=== PATIENT | female | born 1950 | race Caucasian/White ===

== ENCOUNTER 2025-08-01 14:17 | Inpatient (IN) | payer MEDICARE, SELFPAY ==
[2025-08-01] VITALS (8 sets, daily range): BP systolic 125–187; BP diastolic 61–91; BMI 43.0; BMI 42.0
[2025-08-01 08:39] LABS: Glucose - Point of Care 80 mg/dl (70-99)
[2025-08-01 09:26] LABS: Hematocrit 38.6 % (37.0-47.0); Hemoglobin 11.9 g/dL (12.0-16.0); Mean Corp Hgb Conc. 30.8 g/dL (33.0-37.0); Mean Corpuscular Volume 90.0 fL (81.0-99.0); Nucleated Red Blood Cells % 0 %; Platelet Count 180 10^3/uL (130-400); Red Cell Dist. Width 14.6 % (11.5-14.5)
--- NOTE | 2025-08-01 09:46 | ED.GENMED ---
History of Present Illness
General
Chief Complaint: Change in Mental Status
Time Seen by Provider: 08/01/25 08:53
History of Present Illness
History of Present Illness:
74-year-old female with history of iron deficiency anemia presenting to the emergency department for change in mental status. Patient arrives a daughter who lives with her. She reports prior to arrival, the patient let out a loud scream. When she
went to assess her, patient was in her doorway, said that she could not move her body, so she lowered her onto a wheelchair. Medics were called and on their arrival patient was noted to be bradycardic and hypoglycemic with a sugar in the 20s. She
was given sugar supplementation and atropine. On arrival patient reports that she has no recollection of preceding events. She does report that she recently started Mounjaro 2 weeks ago, has had limited p.o. intake. She notes that she is feeling
better since interventions by medics. Denies chest pain or difficulty breathing. Denies current weakness or numbness to extremities. Denies any prior cardiac history. Denies any abdominal pain. She has been getting iron infusions for her
anemia. Denies additional acute medical complaints
Phy Exam
Physical Exam
Physical Exam:
General: Well-appearing, no clinical signs of dehydration, nontoxic and in no acute distress
HEENT: protecting airway
Neck: appears supple
CV: Bradycardic, regular rhythm, no evidence of cyanosis
Resp: No accessory muscle use, no increased work of breathing, lungs clear to auscultation bilaterally
Abd: Soft and non-distended, no tenderness to palpation
Extremities: No deformities, no swelling
Neuro: alert, no focal neurologic deficit
: deferred
Rectal: deferred
Psych: Normal affect
Skin: Intact
Course
Orders/Labs/Results
Orders:
Orders
08/01/25 09:19
Complete Blood Count/With Diff Urgent
08/01/25 09:34
Electrocardiogram (*1) Urgent
Reason for Study: Other
Other Reason for Exam: bradycardia
EKG- Treatment ONCE
08/01/25 09:46
Comprehensive Metabolic Panel Urgent
08/01/25 09:47
CT Head W/o Iv Contrast Urgent
Comment:
Reason For Exam: change in mental status
08/01/25 11:53
Dextrose 50%-Water [Dextrose 50% Syringe] 25 grams IV NOW STA
Abnormal Lab Results
08/01/25 08/01/25 08/01/25
09: 09:46 11:38
Hgb 11.9 L g/dL
(12.0-16.0)
MCHC 30.8 L g/dL
(33.0-37.0)
RDW 14.6 H %
(11.5-14.5)
MPV 11.4 H fL
(7.4-10.4)
Absolute Lymphs (auto) 0.8 L 10^3/uL
(1.2-3.4)
Neutrophils % 77.4 H %
(42.2-75.2)
Lymphocytes % 15.3 L %
(20.5-51.1)
BUN 23 H mg/dl
(7-17)
POC Glucose 50 L* mg/dl
(70-99)
08/01/25 09:19
08/01/25 09:46
Vital Signs
Initial and Last Documented VS:
Initial Vital Signs
Pulse Resp BP Pulse Ox
59 18 159/78 97
08/01/25 08:32 08/01/25 08:32 08/01/25 08:32 08/01/25 08:32
Last Documented Vital Signs
Temp Pulse Resp BP Pulse Ox
95 F L 61 19 137/71 95
08/01/25 09:23 08/01/25 12:15 08/01/25 12:15 08/01/25 11:00 08/01/25 12:15
MDM/Problems Addressed
MDM/Problems Addressed:
74-year-old female with history of iron deficiency anemia presenting to the emergency department for episode of altered mental status. Vital signs arrival significant for mild bradycardia.
On exam patient is awake and alert, however preceding hospital visit, was found to be profoundly hypoglycemic and bradycardic, received D10 and atropine. Sugar on arrival has improved as well as heart rate. Suspect hypoglycemia secondary to
patient's Mounjaro, poor p.o. intake. Suspect bradycardia secondary to hypoglycemia. Vital signs on arrival also significant for hypothermia, again likely from profound hypoglycemia. Patient show symptoms without concern for systemic infection or
sepsis. Plan for close cardiac monitoring, laboratory analysis and frequent glucose checking. Given report that patient was unresponsive, will also obtain CT brain imaging. EKG obtained sinus. ED EKG obtained, without any signs of heart block.
Will continue to closely monitor
12:30 -labs relatively unremarkable, however on glucose recheck, sugar did drop to 50, administered D50. Concern of continued hypoglycemia despite patient tolerating food and liquid by mouth. Plan for admission for continued monitoring and
frequent glucose checks
*Pulse Oximetry
SaO2: 97
Oxygen Mode of Delivery: Room air
Patient hypoxic: no
*EKG
Interpreted by ED Provider?: Yes
EKG Intrepretation Date: 08/01/25
EKG Intrepretation Time: 09:50
Interpretation: normal
Comparison EKG: no comparison EKG present
Heart Rate: 55
Rate: bradycardiac
Rhythm: sinus
[place]: normal axis
Interval: normal interval
QRS Pattern: normal QRS
Ischemia: no ischemia
*Critical Care Note
Total Time (30-74mins, 75-104mins- exclusive of procedures): Not Applicable
ED Attending Note
-
Portions of this chart may have been created with voice recognition software.� Occasional wrong word or��sound alike� substitutions may have occurred due to the inherent limitations of voice recognition software.
Discharge Plan
Departure
Referrals:
Abilio Martínez, [Family Provider, Family Practice]
Interventions
Interventions:
*Risk Screen - Suicide Last Done: 08/01/25 08:32
*General Assessment Last Done: 08/01/25 08:32
*Neglect/Abuse Screening Last Done: 08/01/25 09:10
*ED- Fall Risk Assessment Last Done: 08/01/25 09:03
*ED COVID-19 Vaccine History Last Done: 08/01/25 09:03
ED- Neurological Assessment Last Done: 08/01/25 09:03
ED Swallowing Screen Last Done: 08/01/25 09:03
Discharge Date and Time
Print Language: WOLOF
[2025-08-01 10:15] LABS: ALT (SGPT) 15 U/L (0-35); AST (SGOT) 21 U/L (14-36); Albumin 4.1 g/dl (3.5-5.0); Alkaline Phosphatase 46 U/L (38-126); Blood Urea Nitrogen 23 mg/dl (7-17); Calcium 9.5 mg/dl (8.4-10.2); Carbon Dioxide 26 mmol/L (22-30); Chloride 106 mmol/L (98-107); Estimated Creatinine Clearance 61 ml/min; Glucose 70 mg/dl (70-99); Potassium 4.3 mmol/L (3.5-5.1); Sodium 140 mmol/L (135-145); Total Protein 7.8 g/dl (6.3-8.2); eGFR 59.12
[2025-08-01 11:39] LABS: Glucose - Point of Care 50 mg/dl (70-99)
[2025-08-01] MEDS: DEXTROSE 50% SYRINGE 25 GRAMS IV (11:55)
--- NOTE | 2025-08-01 12:43 | HPS.HSE ---
Addendum entered and electronically signed by Shayla Giang MD 08/01/25 15:27:
This is an addendum to H&P with by Jaki Judd on 08/01/2025. �Patient seen and examined independently with CHEMISTS.
74-year-old female past medical history of diabetes, anemia, hypertension, CKD 3, hyperlipidemia, osteoporosis, presenting for change in mental status. �Prior to arrival patient mildly screamed. �Patient was in the doorway and could not move her
body and was lowered onto wheelchair by her daughter. �Medics were called and on arrival she was bradycardic and hypoglycemic blood sugar in the 20s. �She was given glucose and atropine.
She was started on Mounjaro 2 weeks ago for weight loss and has been eating very little. Recent a1c 6.7 this month.�
Brother 3 weeks ago. Zoloft stopped 3 months ago because innfective.�
She has been having issues with recurrent anemia requiring blood transfusions and iron infusions. �She was recommended to follow-up with GI for endoscopy.
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
Vital signs show temperature of 95. �Heart rate 50s. Blood pressure 187/91.�
EKG shows sinus bradycardia with premature supraventricular complexes.
Labs show blood sugar of 80, second blood sugar 50.
CT head shows tiny old lacunar infarct in left internal capsule.
Patient with severe hypoglycemia associated with hypothermia/bradycardia secondary to recently started Mounjaro in the setting of poor p.o. intake and glimepiride use and underlying CKD 3. �D10 drip started. �Mani janet as needed.�
Hold metoprolol for now since bradycardic. PRN Hydralazine for elevated blood pressure.� Resume Valsartan/HCTZ.�
Metformin and glimepride should be stopped permanently if Mounjaro to be continued given recent a1c 6.7.
Original Note:
Family Physician
-
Family Physician: Abilio Martínez
Chief Complaint
-
Hypoglycemia, bradycardia
History of Present Illness
74-year-old female from home where she lives with her daughter who states last night she noticed feeling very hungry she also felt very sweaty but did not let her daughter know. This morning patient let out a loud scream and her daughter found her
in the doorway unable to move from her wheelchair. She lowered her to the floor And called EMS. Upon EMS arrival her blood sugar was noted to be in the 20s along with her heart rate being bradycardic. She was given D10 push and atropine. She
reports starting Mounjaro 2 weeks ago along with her metformin 500 mg daily and glimepiride 4 mg daily however her daughter states that her recent A1c was 6.7 in the last month. Her last dose of Mounjaro was Sunday 3 days ago at 2.5 mg. The
patient has had decreased appetite while on this medication. According to her daughter she only had a small salad yesterday a.m. The patient was unaware of hypoglycemic and hyperglycemic symptoms that I went over with both patient and daughter at
bedside. I made her aware to stop her glimepiride and metformin if she is on Mounjaro. Patient also expressed that her brother 3 weeks ago had history of cardiac disease and pulmonary disease she has been very upset and anxious that she is
going to herself. Her daughter states she used to be on Zoloft which was stopped
She is also currently receiving IV iron transfusions of which last when she had was on Sunday 5 days ago. She has subsequent 2 more infusions this coming Sunday and Sunday. She required blood a few months ago due to anemia. She is due for
follow-up with GI for endoscopy/colonoscopy. She has past medical history of iron deficiency anemia, hypertension, DM 2, GERD, anxiety/depression, CKD3 A, class III obesity
Medical History
Past Medical History
Past Medical History: Reports Other
Additional Past Medical History:
COPD
Former smoker stopped April 2025
DM2
HTN
GERD
iron deficiency anemia
anxiety/depression
CKD3 A,
class III obesity
Past Surgical History: Reports Other
Additional Past Surgical History:
Cholecystectomy
Great toe bone removal
Social History
Tobacco: Former Smoker (56-year 1.5 pack/day smoker stopped April 2025)
Alcohol: None
Drug: None
Personal: Single
Living: With Family (Lives with daughter)
Employment: Retired
Family History
Family History: Other (Brother recently 3 weeks ago history of A-fib, pulmonary disease)
Allergies / Home Medications
Allergies reflects when Allergies were last updated in [employer].
Home Medications with original date entered in [employer]
Allergy/Medication List:
Allergies
Allergy/AdvReac Type Severity Reaction Status Date / Time
Iodinated Contrast Media Allergy Unknown Verified 08/01/25 08:36
shellfish derived Allergy Unknown Verified 08/01/25 08:36
Home Medications
albuterol sulfate 90 mcg/actuation aerosol inhaler 1 puff inhalation Q4HPRN PRN wheezing sob 08/01/25
albuterol sulfate 90 mcg/actuation aerosol inhaler 2 inh inhalation R Q4HPRN PRN wheezing 08/01/25
alendronate 70 mg tablet 70 mg PO DIRECTED 08/01/25
alendronate 70 mg tablet 70 mg PO MO 08/01/25
atorvastatin 40 mg tablet 40 mg PO DAILY 08/01/25
atorvastatin 40 mg tablet 40 mg PO DAILY 08/01/25
budesonide 160 mcg-glycopyr 9 mcg-formot 4.8 mcg/actuation HFA inhaler (Breztri Aerosphere) 2 inh inhalation BID 08/01/25
budesonide 160 mcg-glycopyr 9 mcg-formot 4.8 mcg/actuation HFA inhaler (Breztri Aerosphere) 2 inh inhalation R BID 08/01/25
cholecalciferol (vitamin D3) 25 mcg (1,000 unit) tablet 25 mcg PO DAILY 08/01/25
fenofibrate nanocrystallized 48 mg tablet 48 mg PO DAILY 08/01/25
glimepiride 4 mg tablet 4 mg PO DAILY 08/01/25
metoprolol succinate 50 mg tablet,extended release 24 hr 25 mg PO DAILY 08/01/25
pantoprazole 40 mg tablet,delayed release 40 mg PO DAILY 08/01/25
pantoprazole 40 mg tablet,delayed release 40 mg PO DAILY 08/01/25
tirzepatide 2.5 mg/0.5 mL subcutaneous pen injector (Mounjaro) 2.5 mg SC DIRECTED 08/01/25
tirzepatide 2.5 mg/0.5 mL subcutaneous pen injector (Mounjaro) 2.5 mg SC WE 08/01/25
valsartan 80 mg-hydrochlorothiazide 12.5 mg tablet 1 tab PO DAILY 08/01/25
valsartan 80 mg-hydrochlorothiazide 12.5 mg tablet 80 tab PO DAILY 08/01/25
Review of Systems
-
History Source: Patient and Family (Daughter at bedside)
A 12 point ROS was completed and negative except as noted: Yes
Constitutional: Reports Fever (Hypothermia) and Chills
EENT: Denies Sore Throat or Runny Nose
Respiratory: Denies Cough or Trouble Breathing
Cardiac: Reports Diaphoresis; Denies Chest Pain or Palpitations
Abdomen/GI: Reports Nausea; Denies Abdominal Pain, Vomiting, Diarrhea or Constipated
: Denies Dysuria, Frequency, Flank Pain, Incontinence or Difficulty Voiding
Musculoskeletal: Denies Joint Pain, Joint Swelling or Edema
Skin: Denies Itching or Rash
Neurological: Reports Dizzy; Denies Headache or Weakness
Endocrine: Reports No Symptoms
Hematologic/Lymphatic: Reports No Symptoms
Psych: Reports Anxiety
Physical Exam
Vital Signs
Vital Signs
Temp Pulse Resp BP Pulse Ox
95 F L 61 19 137/71 95
08/01/25 09:23 08/01/25 12:15 08/01/25 12:15 08/01/25 11:00 08/01/25 12:15
Physical Exam
General: Conversant and Morbidly Obese; No Pain, Fever or Chills
HEENT: NormoCephalic, Anicteric, Moist mucous membranes, [place] Conjunctivae and No Ptosis
Respiratory: Clear; No Wheezes, Rales or Rhonchi
Cardiac: S1/S2 and Bradycardia (Sinus bradycardia heart rate 56 bpm on monitor); No Murmur, Rub, Gallop or Peripheral Edema
Breast: Deferred by me
GI: Soft, Non Tender, Normal Bowel Sounds and No Hepatosplenomegaly
Rectal: Deferred by Provider
Genito-urinary: Deferred by me
Musculoskeletal: No Clubbing, No Cyanosis and No Edema
Skin: Warm and Dry; No Rash or Jaundice
Neuro: AO x 3, No Motor Deficits, Nonfocal/grossly intact, Cranial Nerves Intact and No Sensory Deficits; No Slurred Speech, Facial Droop, Tremors or Sedated
Psych: Calm (To slight anxious)
Laboratory Results
-
08/01/25 09:19
08/01/25 09:46
Laboratory Results
Total Bilirubin 0.5 mg/dl (0.2-1.3) 08/01/25 09:46
AST 21 U/L (14-36) 08/01/25 09:46
ALT 15 U/L (0-35) 08/01/25 09:46
Alkaline Phosphatase 46 U/L (38-126) 08/01/25 09:46
Data Reviewed
-
CT Scan: Report Reviewed by me
Lab Data: Labs Reviewed by me
Impression/Plan
-
Impression/plan:
Admit to TELE
#Acute persistent hypoglycemia likely secondary to Mounjaro/DM 2
Blood sugar 20 at home given glucose repeat blood sugar dropped to 50 in ER
Recent Accu-Chek 96 at 13:40 PM
- IV D10 drip
- Accu-Cheks every 2 hours until stable blood sugar> 100 then every 4 hours
- Recommended to patient with daughter present stopping permanently glimepiride and metformin 500 mg daily due to reported recent A1c 6.7 in the past month
- Will check HgbA1c
CT head: Tiny old lacunar infarct in left internal capsule senescent changes
# Acute hypothermia secondary to hypoglycemia
95F > 97.9 with correction of glucose currently 96
#Acute bradycardia in setting of hypoglycemia
- HR 57
Will hold metoprolol 25 mg
- Patient was given atropine by EMS prior to arrival
#HTN
BP 187/91
IV hydralazine now and as needed
- Hold current metoprolol due to current bradycardia
- Resume valsartan 80/HCTZ 12.5 mg daily patient has not been on for the past month due to unable to get from pharmacy
#Anxiety
Was taken off of Zoloft 200 mg daily due to not working and having bad dreams
Patient made aware to follow-up with PCP as she is currently having anxiety and depression after her brother's
#COPD no acute exacerbation
Former smoker stopped April 2025
- Continue Breztri inhaler, patient on Dupixent
#GERD
Continue Protonix 40 mg daily
#History of toe surgery with occasional pain
Patient takes gabapentin 100 mg p.o. as needed
#Osteoporosis
Patient on Fosamax 70 mg on Mondays
Class III obesity�BMI 43
Affects all aspects of care
Continue Mounjaro 2.5 mg weekly on Wednesdays
DVT prophylaxis
Subcu Lovenox
Full code
[2025-08-01 13:34] LABS: Glucose - Point of Care 92 mg/dl (70-99)
[2025-08-01] MEDS: D10W 500 IV (13:40)
[2025-08-01] MEDS: LOPRESSOR 25 MG PO (13:41)
[2025-08-01] MEDS: APRESOLINE 10 MG IV (13:41)
[2025-08-01 15:30] LABS: Glucose - Point of Care 71 mg/dl (70-99)
--- NOTE | 2025-08-01 16:30 | PTCARENOTE ---
Pt received from ED and walked to bed from stretcher. VSS. AAOx3. barback applied- NSR @this time. BG 71. D10W running @40mls/hr. Pt drinking kathi beatriz. pt complains of some nausea at times with repositioning. Call espinoza is within reach.
POC ongoing.
[2025-08-01 17:31] LABS: Glucose - Point of Care 108 mg/dl (70-99)
[2025-08-01] MEDS: SYMBICORT 160/4.5 MCG INHALER 2 PUFF INH (20:33)
[2025-08-01 21:28] LABS: Glucose - Point of Care 108 mg/dl (70-99)
[2025-08-01] MEDS: DESENEX/MITRAZOL/ZEASORB 1 APPLIC TOPICAL (21:57)
[2025-08-01] MEDS: HEPARIN 5000 UNITS SC (21:59)
[2025-08-01] MEDS: MELATONIN 5 MG PO (22:35)
[2025-08-01] MEDS: TYLENOL 650 MG PO (22:39)
[2025-08-02] VITALS (7 sets, daily range): BP systolic 135–172; BP diastolic 62–75; PULSE 66; BMI 41.8
[2025-08-02 01:31] LABS: Glucose - Point of Care 118 mg/dl (70-99)
[2025-08-02] MEDS: D10W IV (02:46)
[2025-08-02] MEDS: D10W 1000 IV (02:48)
[2025-08-02 05:58] LABS: Glucose - Point of Care 134 mg/dl (70-99)
[2025-08-02 06:40] LABS: Glucose - Point of Care 117 mg/dl (70-99)
[2025-08-02 07:54] LABS: Hematocrit 36.7 % (37.0-47.0); Hemoglobin 11.7 g/dL (12.0-16.0); Mean Corp Hgb Conc. 31.9 g/dL (33.0-37.0); Mean Corpuscular Volume 89.1 fL (81.0-99.0); Nucleated Red Blood Cells % 0 %; Platelet Count 216 10^3/uL (130-400); Red Cell Dist. Width 14.9 % (11.5-14.5)
[2025-08-02] MEDS: SYMBICORT 160/4.5 MCG INHALER 2 PUFF INH ×2 (08:11→19:37)
[2025-08-02] MEDS: SPIRIVA RESPIMAT 2.5 MCG 2 PUFF INH (08:11)
[2025-08-02 08:17] LABS: ALT (SGPT) 15 U/L (0-35); AST (SGOT) 18 U/L (14-36); Albumin 3.8 g/dl (3.5-5.0); Alkaline Phosphatase 54 U/L (38-126); Blood Urea Nitrogen 19 mg/dl (7-17); Calcium 9.6 mg/dl (8.4-10.2); Carbon Dioxide 28 mmol/L (22-30); Chloride 104 mmol/L (98-107); Estimated Creatinine Clearance 50 ml/min; Glucose 157 mg/dl (70-99); Potassium 4.4 mmol/L (3.5-5.1); Sodium 137 mmol/L (135-145); Total Protein 7.3 g/dl (6.3-8.2); eGFR 47.50
[2025-08-02] MEDS: PROTONIX 40 MG PO (08:17)
[2025-08-02] MEDS: LIPITOR 40 MG PO (08:17)
[2025-08-02] MEDS: ORETIC 12.5 MG PO (08:17)
[2025-08-02] MEDS: HEPARIN 5000 UNITS SC ×2 (08:18→20:11)
[2025-08-02] MEDS: DIOVAN 80 MG PO (08:18)
[2025-08-02] MEDS: DESENEX/MITRAZOL/ZEASORB 1 APPLIC TOPICAL ×2 (08:19→20:16)
[2025-08-02 10:43] LABS: Glycohemoglobin (HgbA1c) 6.0 % (4.0-5.6)
[2025-08-02 12:01] LABS: Glucose - Point of Care 252 mg/dl (70-99)
--- NOTE | 2025-08-02 12:25 | PTOTSP ---
Patient demonstrates safe and independent mobility, no skilled physical therapy needs at this time.
[2025-08-02] MEDS: NOVOLOG FLEXPEN-LOW RESISTANCE 3 UNITS SC (13:18)
--- NOTE | 2025-08-02 13:19 | W.PN.HOSP.TC ---
Addendum entered and electronically signed by Wily Haque MD 08/02/25 13:24:
CKD stage unknown
- Creatinine 1.2, baseline unknown although family stated of patient having diagnosed with CKD
- Patient followed by court worker on outpatient basis
Original Note:
Today's Communication/Plan
-
Stop D10
Insulin sliding scale for high blood glucose
No glimepiride
Monitor blood glucose
Iron infusion in the morning
Possible discharge tomorrow
Assessment / Plan
Assessment / Plan
1. Acute Hypoglycemia
-Glucose was in 20s at home, required to be given glucose in ER with blood glucose still remain low in 50s
-Started on IV dextrose 10% infusion
-Likely secondary to glimepiride use with decreased oral intake from Mounjaro adding to the problem
-Blood glucose better, stopping D10
-Liberalizing carb intake
-Monitor blood glucose overnight with possible discharge if remains stable on oral intake
2. Iron deficiency anemia
-Patient was planned to have an iron infusion at [facility] tomorrow
-Will provide 1 dose of Ferrlecit tomorrow
3. Bradycardia/hypothermia
-Secondary to hypoglycemia, resolved
4. Hypertensive urgency -resolved
-Patient required to be given IV hydralazine in ER for systolic blood pressure in 180s
-Resume home medication of ROSALINDA/ARB
Generalized anxiety disorder
COPD
Gastroesophageal reflux disease
Obesity
Osteoporosis
DVT prophylaxis Subcu Lovenox
Full code
Total time spent : 54 mins
Anticipated Discharge: Within 24 hours
Subjective/Interval History
-
Date of Service: August 02, 2025
Denies of having any dizziness/diaphoresis
No problems with balance
But glucose has been better
Objective Data
-
Labs:
Laboratory Results
08/02/25
07:06
WBC 6.4
Hgb 11.7 L
Hct 36.7 L
Plt Count 216
Sodium 137
Potassium 4.4
Chloride 104
Carbon Dioxide 28
BUN 19 H
Creatinine 1.2 H
Glucose 157 H
Calcium 9.6
Total Bilirubin 0.4
AST 18
ALT 15
Alkaline Phosphatase 54
Vital Signs:
Vital Signs
Temp Pulse Resp BP Pulse Ox
98.4 F 59 20 144/62 96
08/02/25 11:00 08/02/25 11:00 08/02/25 11:00 08/02/25 11:00 08/02/25 11:00
Review of Systems
-
Respiratory: Reports No Symptoms
Cardiac: Reports No Symptoms
Abdomen/GI: Reports No Symptoms
Physical Exam
-
General: Obese
HEENT: Negative Oxygen
Neuro: Awake, Alert, Oriented and No Motor Deficits
--- NOTE | 2025-08-02 13:46 | CM ---
Alert awake oriented patient who lives with her dgt Kathryn. They live in a split level home with 4 steps to enter.She is independent with ADLs. She does not drive.Denies needing adaptive devices.Offered VN she declined need at dc.
NO VN/SNf Hx
Pharmacy [facility]
PCP Dr Martínez
PLAN Home no needs
[2025-08-02 16:59] LABS: Glucose - Point of Care 183 mg/dl (70-99)
[2025-08-02] MEDS: NOVOLOG FLEXPEN-LOW RESISTANCE 1 UNITS SC (17:18)
[2025-08-02] MEDS: MELATONIN 3 MG PO (21:23)
[2025-08-02 21:37] LABS: Glucose - Point of Care 148 mg/dl (70-99)
[2025-08-03] MEDS: TYLENOL 650 MG PO (02:41)
[2025-08-03 03:56] VITALS: BP 136/62
[2025-08-03 06:00] VITALS: BMI 41.3
[2025-08-03 07:00] VITALS: BP 165/60
--- NOTE | 2025-08-03 07:14 | W.PN.HOSP.TC ---
Addendum entered and electronically signed by Kemar Leigh MD 08/03/25 15:37:
BAKARI
Original Note:
Today's Communication/Plan
-
Discharge planning today
Assessment / Plan
Assessment / Plan
Physical exam:
General: Well Developed, Well Nourished and No Apparent Distress
HEENT: Normocephalic, Atraumatic and Moist Mucous Membranes
Respiratory: Clear to Auscultation; Negative Wheezes, Rales or Rhonchi
Cardiac: Regular Rhythm and S1/S2
GI: Soft, Nontender and Nondistended
Musculoskeletal: No Clubbing, No Cyanosis and No Edema
Neuro: Awake, Alert and Oriented, no neurological deficits
Psych: Calm
A/P:
1. Acute Hypoglycemia
-Resolved
-Glucose was in 20s at home, required to be given glucose in ER with blood glucose still remain low in 50s
-Started on IV dextrose 10% infusion
-Likely secondary to glimepiride use with decreased oral intake from Mounjaro adding to the problem
-Blood glucose better, stopping D10
-Liberalizing carb intake
- Discussed with patient and daughter at bedside today 08/03. We discussed the use of Mounjaro or oral medications but not both and she prefers to stay on oral medications for now. Advised caution in the setting of decreased oral intake or
dehydration. She is also agreeable to see city secretary as outpatient-reached out to city secretary Dr. Ackerman and she will be seen as outpatient.
2. Iron deficiency anemia
-Patient was planned to have an iron infusion at [facility] today
-Will provide 1 dose of Ferrlecit today
3. Bradycardia/hypothermia
-Secondary to hypoglycemia, resolved
- Beta-rao discontinued
4. Hypertensive urgency -resolved
-Patient required to be given IV hydralazine in ER for systolic blood pressure in 180s
-Resume home medication of ARB and HCTZ
Generalized anxiety disorder
COPD
Gastroesophageal reflux disease
Obesity
Osteoporosis
DVT prophylaxis Subcu Lovenox
Full code
Total time spent : 34 mins
Anticipated Discharge: Today
Subjective/Interval History
-
Date of Service: August 03, 2025
No new complaints. Patient wants to go home
Objective Data
-
Labs:
Laboratory Results
08/03/25
06:00
WBC Pending
Hgb Pending
Hct Pending
Plt Count Pending
Sodium Pending
Potassium Pending
Chloride Pending
Carbon Dioxide Pending
BUN Pending
Creatinine Pending
Glucose Pending
Calcium Pending
Total Bilirubin Pending
AST Pending
ALT Pending
Alkaline Phosphatase Pending
Vital Signs:
Vital Signs
Temp Pulse Resp BP Pulse Ox
98.0 F 65 16 136/62 98
08/03/25 03:56 08/03/25 03:56 08/03/25 03:56 08/03/25 03:56 08/03/25 03:56
I&O
08/02/25 08/03/25 08/04/25
06:59 06:59 06:59
Intake Total 1140 / 1140
Balance 1140 / 1140
[2025-08-03 07:24] LABS: Glucose - Point of Care 160 mg/dl (70-99)
[2025-08-03] MEDS: ORETIC 12.5 MG PO (07:36)
[2025-08-03] MEDS: DIOVAN 80 MG PO (07:36)
[2025-08-03] MEDS: HEPARIN 5000 UNITS SC (07:36)
[2025-08-03] MEDS: PROTONIX 40 MG PO (07:36)
[2025-08-03] MEDS: LIPITOR 40 MG PO (07:37)
[2025-08-03] MEDS: FERRLECIT 110 MG IV (07:43)
[2025-08-03] MEDS: NOVOLOG FLEXPEN-LOW RESISTANCE 1 UNITS SC ×2 (07:49→12:30)
[2025-08-03] MEDS: DESENEX/MITRAZOL/ZEASORB 1 APPLIC TOPICAL (07:50)
[2025-08-03] MEDS: SYMBICORT 160/4.5 MCG INHALER 2 PUFF INH (08:33)
[2025-08-03] MEDS: SPIRIVA RESPIMAT 2.5 MCG 2 PUFF INH (08:34)
[2025-08-03 10:01] LABS: Hematocrit 35.9 % (37.0-47.0); Hemoglobin 11.2 g/dL (12.0-16.0); Mean Corp Hgb Conc. 31.2 g/dL (33.0-37.0); Mean Corpuscular Volume 88.4 fL (81.0-99.0); Nucleated Red Blood Cells % 0 %; Platelet Count 190 10^3/uL (130-400); Red Cell Dist. Width 14.8 % (11.5-14.5)
[2025-08-03 10:24] LABS: ALT (SGPT) 14 U/L (0-35); AST (SGOT) 16 U/L (14-36); Albumin 4.1 g/dl (3.5-5.0); Alkaline Phosphatase 60 U/L (38-126); Blood Urea Nitrogen 23 mg/dl (7-17); Calcium 9.7 mg/dl (8.4-10.2); Carbon Dioxide 26 mmol/L (22-30); Chloride 104 mmol/L (98-107); Estimated Creatinine Clearance 46 ml/min; Glucose 190 mg/dl (70-99); Potassium 4.3 mmol/L (3.5-5.1); Sodium 137 mmol/L (135-145); Total Protein 7.6 g/dl (6.3-8.2); eGFR 43.15
[2025-08-03 11:00] VITALS: BP 158/74
--- NOTE | 2025-08-03 11:57 | W.DCSUMMARY ---
Discharge Summary
Discharge Data
Date of Admission: 08/01/25
Date of Discharge: 08/03/25
-
Pending Results: No
Hospital Course
Patient is 74 years old female history of diabetes mellitus type 2, hypertension, anemia, CKD, hyperlipidemia, osteoporosis came into the hospital mental status changes. Patient was found to have hypoglycemia as well as bradycardia and hypothermia.
Patient was noted to be on Mounjaro and metformin and glimepiride. She was also noticed to be on metoprolol. Patient diabetic regimen was held and she was placed on insulin sliding scale. She was given glucose and atropine. Her beta-rao was
discontinued. Patient was placed back on her ARB and HCTZ as she was supposed to be on it but had not picked up as outpatient. Patient did well and feeling back to her baseline. She is open to seeing an rag baler as outpatient so I reached
out to endocrine I will have her see as outpatient. There are several options that we can move forward in terms of her management for her diabetes but she also needs to participate and be compliant with whichever regimen is chosen. At the moment
she wants to hold on Mounjaro and restart her oral hypoglycemics. She will be discharged in stable condition today.
Discharge Plan
-
Patient Disposition: Home (Routine Discharge)
Discharge Diagnosis/Procedures: Hypoglycemia. Diabetes mellitus. Bradycardia. Hypertensive urgency. Iron deficiency anemia. Hypothermia.
Diet: Low Cholesterol and Low Sodium
Activity: As tolerated
Blood Work: Please PCP to order CBC, BMP within 1 week
Referrals:
Celso Ackerman MD [Consulting Staff, Endocrinology] - in one to two weeks
Abilio Martínez DO [Family Provider, Family Practice] - in less than 1 week
Prescriptions:
Continued
alendronate 70 mg tablet
70 mg PO MO
pantoprazole 40 mg tablet,delayed release (DR/EC)
40 mg PO DAILY
glimepiride 4 mg tablet
4 mg PO DAILY
fenofibrate nanocrystallized 48 mg tablet
48 mg PO DAILY
cholecalciferol (vitamin D3) 25 mcg (1,000 unit) Tablet
25 mcg PO DAILY
Mounjaro 2.5 mg/0.5 mL pen injector
2.5 mg SC WE
atorvastatin 40 mg tablet
40 mg PO DAILY
albuterol sulfate 90 mcg/actuation HFA aerosol inhaler
1 puff INHALATION Q4HPRN PRN (Reason: wheezing sob)
Breztri Aerosphere 160-9-4.8 mcg/actuation HFA aerosol inhaler
2 inh INHALATION BID
valsartan-hydrochlorothiazide 80-12.5 mg tablet
80 tab PO DAILY Qty: 30 0RF
Rx Instructions:
daughter states did not get a chance to pharmacy picking technician the medication in July
Discontinued
atorvastatin 40 mg tablet
40 mg PO DAILY
metoprolol succinate 50 mg tablet extended release 24 hr
25 mg PO DAILY
valsartan-hydrochlorothiazide 80-12.5 mg tablet
1 tab PO DAILY
Patient Comments:
family keeps forgetting to refill, pt hasn't had this med in about a month
albuterol sulfate 90 mcg/actuation HFA aerosol inhaler
2 inh INHALATION R Q4HPRN PRN (Reason: wheezing)
Breztri Aerosphere 160-9-4.8 mcg/actuation HFA aerosol inhaler
2 inh INHALATION R BID
alendronate 70 mg tablet
70 mg PO DIRECTED
Rx Instructions:
weekly mondays
pantoprazole 40 mg tablet,delayed release (DR/EC)
40 mg PO DAILY
Mounjaro 2.5 mg/0.5 mL pen injector
2.5 mg SC DIRECTED
Patient Comments:
weekly on wednesdays
Discharge Orders:
Discharge Patient (As Directed); Ordered 08/03/25
Ordered By: Kemar Leigh
Discharge Date and Time
Discharge Date/Time: 08/03/25 14:04
Print Language: [place]
[2025-08-03 11:59] LABS: Glucose - Point of Care 175 mg/dl (70-99)
--- NOTE | 2025-08-03 12:30 | CM ---
CM following for discharge planning. Pt admitted with decreased responsiveness, low BG and low heart rate.
Now mental status is back to baseline. Pt reports living with her daughter and family in a 1 story home with 4 entry steps with bilateral railings.
Pt evaluated by PT and does not require skilled therapy.
Plan: Discharge to home with no identified needs.
PCP: Freddy Martínez
Pharm:
--- NOTE | 2025-08-03 12:44 | CM ---
CM following for discharge planning. Pt admitted with decreased responsiveness, low BG and low heart rate.
Now mental status is back to baseline. Pt reports living with her daughter and family in a 1 story home with 4 entry steps with bilateral railings.
Pt evaluated by PT and does not require skilled therapy.
Plan: Discharge to home with no identified needs.
PCP: Freddy Martínez
Pharm: [facility] [address] in [facility].
--- NOTE | 2025-08-03 15:08 | PN.CDI ---
CDI
- -
CDI:
Physician Documentation Request
Admit Date: 08/01/25 14:17
Dear Doctor Reese,
Patient admitted with acute hypoglycemia.
Creatinine results:
Laboratory Tests
08/01/25 08/02/25 08/03/25
09:46 07:06 09:08
Creatinine 1.0 1.2 H 1.3 H
Could you please provide a diagnosis that supports the above lab abnormalities and additional evaluation/ monitoring:
BAKARI
Abnormal lab value clinically insignificant
Other
Criteria for BAKARI*
1 Increase in serum creatinine by > or = to 0.3 mg/dL (> or = to 26.5 micromol/L) within 48 hours, OR
2 Increase in serum creatinine to > or = to 1.5 times baseline, which is known or presumed to have occurred within 7 days, OR
3 Urine volume < 0.5 nL/kg/hour for six hours
Use of terms such as suspected, likely, concern for, or probable (associated with a specific diagnosis that is being evaluated, monitored, or treated as if it exists) are acceptable and can be coded in the inpatient setting, when documented at the
time of discharge.
Thank you,
Jennifer Capmos RN, BSN
CDI Specialist
tiger text
Please use your independent medical judgment in providing your response.
== END 2025-08-03 14:04 | disposition home or self-care (01) | DRG 638 ==
LOC: 3 WEST ACU 14:17
PROVIDERS: Clinical Nurse Specialist Family Health; ADMITTING PHYSICIAN Hospitalist; ATTENDING PHYSICIAN Hospitalist; EMERGENCY PHYSICIAN Student in an Organized Health Care Education/Training Program; FAMILY PHYSICIAN Family Medicine
DX: E11.649 Type 2 diabetes mellitus with hypoglycemia without coma (principal); Z68.41 Body mass index [BMI] 40.0-44.9, adult; E11.22 Type 2 diabetes mellitus with diabetic chronic kidney disease; I12.9 Hypertensive chronic kidney disease with stage 1 through stage 4 chronic kidney disease, or unspecified chronic kidney disease; N18.30 Chronic kidney disease, stage 3 unspecified; D50.9 Iron deficiency anemia, unspecified; E78.5 Hyperlipidemia, unspecified; M81.0 Age-related osteoporosis without current pathological fracture; E66.813 Obesity, class 3; F32.A Depression, unspecified; R68.0 Hypothermia, not associated with low environmental temperature; T38.3X5A Adverse effect of insulin and oral hypoglycemic [antidiabetic] drugs, initial encounter; I16.0 Hypertensive urgency; F41.1 Generalized anxiety disorder; J44.9 Chronic obstructive pulmonary disease, unspecified; K21.9 Gastro-esophageal reflux disease without esophagitis; N17.9 Acute kidney failure, unspecified; Z79.83 Long term (current) use of bisphosphonates; Z79.84 Long term (current) use of oral hypoglycemic drugs; Z79.899 Other long term (current) drug therapy; Z86.73 Personal history of transient ischemic attack (TIA), and cerebral infarction without residual deficits; Z87.891 Personal history of nicotine dependence
CPT/HCPCS: 70450; 80053; 82962; 83036; 85025; 93005; 94640; 96374; 97162; 99285; J2916